=== PATIENT | female | born 1950 | race Caucasian/White ===

== ENCOUNTER 2020-09-29 14:16 | Inpatient (IN) ==
[2020-09-29] MEDS ORDERED: ONDANSETRON 4 MG/2 ML VIAL IV STA (14:48)
[2020-09-29] MEDS ORDERED: PANTOPRAZOLE 40 MG VIAL IV STA (14:48)
[2020-09-29] MEDS ORDERED: SODIUM CHLORIDE 0.9% 1,000 ML IV STA (14:48)
[2020-09-29 15:48] LABS: Basophils % 0.3 % (0.0-0.8); Eosinophils % 0.1 % (0.00-10.9); Hematocrit 19.7 VOL% (35.7-47.0); Immature Granulocytes % 1.6 %; Immature Granulocytes Absolute 0.23 #; Lymphocytes # 0.8 10*3/uL (1.4-4.0); Lymphocytes % 5.7 % (21.3-54.2); Mean Corpuscular HGB Conc 31.5 GM/DL (32-36); Mean Corpuscular Volume 87.6 FL (87-102); Mean Platelet Volume 10.9 FL (9.6-12.0); NRBC # 0.21 10*3/uL; Neutrophils % 86.3 % (38.7-73.9); Platelet Count 344 T/CUMM (130-400); Red Blood Count 2.25 MC/CUMM (3.8-5.5); Red Cell Distribution Width 16.9 % (9.3-17.3); White Blood Count 14.1 T/CUMM (4-12)
[2020-09-29 15:56] LABS: Hemoglobin 6.2 GM/DL (12.0-16.0)
[2020-09-29 16:00] LABS: PT Patient Result 10.6 SECS (9.8-11.9); Partial Thromboplastin Time < 20.0 SECS (23.9-33.8)
[2020-09-29 16:10] LABS: Alanine Aminotransferase 23 U/L (13-56); Albumin 2.5 G/DL (3.4-5.0); Alkaline Phosphatase 49 U/L (45-117); Aspartate Amino Transferase 18 U/L (0-37); Bilirubin,Total < 0.39 MG/DL (0.2-1.0); Blood Urea Nitrogen 28 MG/DL (7-18); Calcium 8.1 MG/DL (8.5-10.1); Carbon Dioxide 26 MMOL/L (21-32); Estimated Glom Filtration Rate 84 ML/MIN; Glucose 115 MG/DL (74-106); Osmolality,Calculated 289.1 MOS/KG (273-304); Potassium 3.8 MMOL/L (3.5-5.1); Sodium 142 MMOL/L (136-145); Total Protein 5.2 G/DL (6.4-8.2)
[2020-09-29] MEDS ORDERED: DOCUSATE SODIUM 100 MG CAPSULE PO PRN (16:50)
[2020-09-29] MEDS ORDERED: DEXTROSE 50% 25 GM/50 ML VIAL IV PRN (16:50)
[2020-09-29] MEDS ORDERED: hydrALAZINE 20 MG/1 ML VIAL IV PRN (16:50)
[2020-09-29] MEDS ORDERED: GLUCAGON 1 MG VIAL IM PRN (16:50)
[2020-09-29 16:55] LABS: % Iron Saturation 4.3 % (18-50)
[2020-09-29] MEDS ORDERED: PANTOPRAZOLE INJ 200 MG in SODIUM CHLORIDE 0.9% 250 ML IV SCH (17:00)
[2020-09-29] MEDS: SODIUM CHLORIDE 0.9% 1,000 ML IV SCH (19:49)
[2020-09-29 19:52] LABS: Basophils % 0.2 % (0.0-0.8); Hematocrit 19.2 VOL% (35.7-47.0); Immature Granulocytes % 1.4 %; Immature Granulocytes Absolute 0.18 #; Lymphocytes % 7.3 % (21.3-54.2); Mean Corpuscular HGB Conc 30.7 GM/DL (32-36); Mean Corpuscular Volume 87.3 FL (87-102); Mean Platelet Volume 10.4 FL (9.6-12.0); Monocytes % 4.8 % (1.7-12.7); Neutrophils % 86.3 % (38.7-73.9); Platelet Count 354 T/CUMM (130-400); Red Cell Distribution Width 16.4 % (9.3-17.3); White Blood Count 13.1 T/CUMM (4-12)
[2020-09-29 19:54] LABS: Hemoglobin 5.9 GM/DL (12.0-16.0)
[2020-09-29 20:57] LABS: Sedimentation Rate-Westergren 25 MM/HR (0-30)
[2020-09-29 22:16] LABS: Folate 12.8 NG/ML (5.38-24.0); Vitamin B12 281 PG/ML (211-911)
[2020-09-30] MEDS: ONDANSETRON 4 MG/2 ML VIAL IV PRN ×4 (00:50→22:42)
[2020-09-30] MEDS: ACETAMINOPHEN 325 MG TABLET PO PRN ×3 (01:23→18:37)
[2020-09-30] MEDS ORDERED: SODIUM CHLORIDE 0.9% 1,000 ML IV PRN (01:36)
[2020-09-30] MEDS ORDERED: fentaNYL 75 MCG/HR PATCH TRANSDERM SCH (02:00)
[2020-09-30] MEDS: LEVOTHYROXINE 50 MCG TABLET PO SCH (05:56)
[2020-09-30 06:07] LABS: Basophils % 0.1 % (0.0-0.8); Eosinophils % 0.1 % (0.00-10.9); Immature Granulocytes Absolute 0.14 #; Lymphocytes # 1.2 10*3/uL (1.4-4.0); Lymphocytes % 8.4 % (21.3-54.2); Mean Corpuscular HGB Conc 31.6 GM/DL (32-36); Mean Corpuscular Volume 87.4 FL (87-102); Mean Platelet Volume 11.3 FL (9.6-12.0); Monocytes % 8.4 % (1.7-12.7); Platelet Count 289 T/CUMM (130-400); Red Blood Count 1.74 MC/CUMM (3.8-5.5); White Blood Count 13.9 T/CUMM (4-12)
[2020-09-30 06:18] LABS: Hemoglobin 4.8 GM/DL (12.0-16.0)
[2020-09-30 06:19] LABS: Hematocrit 15.2 VOL% (35.7-47.0)
[2020-09-30 06:42] LABS: Albumin 2.2 G/DL (3.4-5.0); Bilirubin,Total 0.5 MG/DL (0.2-1.0); Calcium 7.4 MG/DL (8.5-10.1); Osmolality,Calculated 287.8 MOS/KG (273-304); Potassium 3.5 MMOL/L (3.5-5.1); Risk Ratio 2.97; Thyroid Stimulating Hormone 1.44 uIU/ml (0.358-3.74); Total Protein 4.5 G/DL (6.4-8.2); VLDL CHOLESTEROL 16.2 MG/DL
[2020-09-30 08:02] LABS: Hemoglobin A1 (Alkaline) 96.9 % (96.5-98.5); Hemoglobin A2 (Alkaline) 3.1 % (1.5-3.5)
[2020-09-30] MEDS: DULoxetine 30 MG CAPSULE PO SCH (08:33)
[2020-09-30] MEDS: SODIUM CHLORIDE 0.9% 1,000 ML IV SCH ×2 (09:05→14:05)
[2020-09-30] MEDS: FERRIC GLUCONATE COMPLEX 125 MG in SODIUM CHLORIDE 0.9% 100 ML IV SCH (12:22)
[2020-09-30] MEDS: CIPROFLOXACIN INJ 400 MG in PREMIX 1 EACH IV SCH (12:22)
[2020-09-30] MEDS: metroNIDAZOLE INJ 500 MG in PREMIX 1 EACH IV SCH ×2 (13:58→20:55)
[2020-09-30 15:14] LABS: Hematocrit 22.9 VOL% (35.7-47.0); Hemoglobin 7.4 GM/DL (12.0-16.0)
[2020-09-30] MEDS: PANTOPRAZOLE 40 MG VIAL IV SCH (20:56)
[2020-10-01] MEDS: CIPROFLOXACIN INJ 400 MG in PREMIX 1 EACH IV SCH ×2 (01:01→14:11)
[2020-10-01] MEDS: SODIUM CHLORIDE 0.9% 1,000 ML IV SCH ×2 (01:08→17:51)
[2020-10-01] MEDS: metroNIDAZOLE INJ 500 MG in PREMIX 1 EACH IV SCH ×3 (05:30→21:43)
[2020-10-01 06:51] LABS: Basophils # 0.1 10*3/uL (0.0-0.2); Basophils % 0.3 % (0.0-0.8); Eosinophils # 0.2 10*3/uL (0.0-0.87); Eosinophils % 1.1 % (0.00-10.9); Hematocrit 29.7 VOL% (35.7-47.0); Hemoglobin 9.5 GM/DL (12.0-16.0); Immature Granulocytes % 1.2 %; Lymphocytes # 1.9 10*3/uL (1.4-4.0); Mean Corpuscular Volume 88.1 FL (87-102); Mean Platelet Volume 11.3 FL (9.6-12.0); Monocytes % 6.2 % (1.7-12.7); NRBC # 0.15 10*3/uL; Neutrophils % 80.2 % (38.7-73.9); Platelet Count 288 T/CUMM (130-400); Red Blood Count 3.37 MC/CUMM (3.8-5.5); Red Cell Distribution Width 15.8 % (9.3-17.3); White Blood Count 16.8 T/CUMM (4-12)
[2020-10-01 07:06] LABS: Calcium 7.7 MG/DL (8.5-10.1); Osmolality,Calculated 279.1 MOS/KG (273-304); Potassium 2.9 MMOL/L (3.5-5.1)
[2020-10-01 07:10] LABS: Albumin 2.5 G/DL (3.4-5.0); Bilirubin,Total 0.6 MG/DL (0.2-1.0); Calcium 7.6 MG/DL (8.5-10.1); Osmolality,Calculated 279.1 MOS/KG (273-304); Potassium 2.9 MMOL/L (3.5-5.1); Total Protein 5.3 G/DL (6.4-8.2)
[2020-10-01 07:41] LABS: Bacteria,Urine Occasional /HPF (Few); Bilirubin,Urine Negative (Negative); Blood, Urine Negative (Negative); Glucose,Urine (UA) Negative (Negative); Ketones,Urine Negative (Negative); Mucus,Urine Occasional /LPF (Occasional); Nitrite,Urine Negative (Negative); Protein,Urine Negative; RBC,Urine 1 /HPF (0-4); Squamous Epithelial Cell,Urine Occasional /HPF (0-10); Urine Appearance CLEAR (Clear); Urine Color Yellow (Yellow); Urine Specific Gravity 1.012 (1.001-1.035); Urine Urobilinogen < 2.0 EU/DL (0.2-1.0); WBC,Urine 16 /HPF (0-6)
[2020-10-01] MEDS: LEVOTHYROXINE 50 MCG TABLET PO SCH (08:04)
[2020-10-01] MEDS: ONDANSETRON 4 MG/2 ML VIAL IV PRN ×3 (08:05→21:41)
[2020-10-01] MEDS: PANTOPRAZOLE 40 MG VIAL IV SCH ×2 (08:05→21:45)
[2020-10-01] MEDS: DULoxetine 30 MG CAPSULE PO SCH (08:06)
[2020-10-01] MEDS: FERRIC GLUCONATE COMPLEX 125 MG in SODIUM CHLORIDE 0.9% 100 ML IV SCH (08:07)
[2020-10-01] MEDS: POTASSIUM CHLORIDE RIDER 10 MEQ in PREMIX 1 EACH IV SCH ×3 (09:19→14:12)
[2020-10-01] MEDS: LACTATED RINGERS 1,000 ML IV SCH (11:53)
[2020-10-01] MEDS ORDERED: propofoL 200 MG/20 ML VIAL IV ONE (12:47)
[2020-10-01] MEDS ORDERED: LIDOCAINE 2% 5 ML VIAL ONE (12:47)
[2020-10-02] MEDS: CIPROFLOXACIN INJ 400 MG in PREMIX 1 EACH IV SCH (00:15)
[2020-10-02] MEDS: ONDANSETRON 4 MG/2 ML VIAL IV PRN ×3 (03:29→14:07)
[2020-10-02 05:23] LABS: Basophils % 0.3 % (0.0-0.8); Eosinophils # 0.3 10*3/uL (0.0-0.87); Eosinophils % 2.7 % (0.00-10.9); Hematocrit 28.2 VOL% (35.7-47.0); Hemoglobin 8.9 GM/DL (12.0-16.0); Immature Granulocytes % 0.8 %; Immature Granulocytes Absolute 0.09 #; Lymphocytes # 1.1 10*3/uL (1.4-4.0); Lymphocytes % 9.9 % (21.3-54.2); Mean Corpuscular HGB Conc 31.6 GM/DL (32-36); Mean Corpuscular Volume 88.4 FL (87-102); Mean Platelet Volume 11.4 FL (9.6-12.0); Monocytes % 8.4 % (1.7-12.7); NRBC # 0.07 10*3/uL; Neutrophils % 77.9 % (38.7-73.9); Platelet Count 266 T/CUMM (130-400); Red Blood Count 3.19 MC/CUMM (3.8-5.5); Red Cell Distribution Width 16.1 % (9.3-17.3); White Blood Count 11.2 T/CUMM (4-12)
[2020-10-02] MEDS: metroNIDAZOLE INJ 500 MG in PREMIX 1 EACH IV SCH (05:41)
[2020-10-02] MEDS: SODIUM CHLORIDE 0.9% 1,000 ML IV SCH ×2 (05:41→16:32)
[2020-10-02] MEDS: LEVOTHYROXINE 50 MCG TABLET PO SCH (05:41)
[2020-10-02 05:46] LABS: Albumin 2.3 G/DL (3.4-5.0); Calcium 7.9 MG/DL (8.5-10.1); Potassium 2.8 MMOL/L (3.5-5.1); Total Protein 4.7 G/DL (6.4-8.2)
[2020-10-02] MEDS ORDERED: POTASSIUM CHLORIDE 20 MEQ TABLET PO ONE (08:13)
[2020-10-02] MEDS: DULoxetine 30 MG CAPSULE PO SCH (08:44)
[2020-10-02] MEDS ORDERED: CYANOCOBALAMIN 500 MCG TABLET PO SCH (09:00)
[2020-10-02] MEDS ORDERED: DOCUSATE SODIUM 100 MG CAPSULE PO SCH (09:00)
[2020-10-02] MEDS ORDERED: PANTOPRAZOLE 40 MG TABLET PO SCH (09:00)
[2020-10-02] MEDS: FERRIC GLUCONATE COMPLEX 125 MG in SODIUM CHLORIDE 0.9% 100 ML IV SCH (10:11)
[2020-10-02] MEDS: LACTATED RINGERS 1,000 ML IV SCH (10:56)
[2020-10-02 11:45] VITALS: BP 157/72
[2020-10-03] MEDS ORDERED: POTASSIUM CHLORIDE 20 MEQ TABLET PO SCH (09:00)
== END 2020-10-02 15:53 | disposition home or self-care (01) | DRG 381 ==
LOC: EDUNIT# → EDBD → N.ED 14:16 → N.EDINP 16:50 → N.5E 18:46
PROVIDERS: ADMIT Family Medicine; ATTEND Family Medicine